=== PATIENT | female | born 1985 | race Caucasian/White ===

== ENCOUNTER → 2018-03-18 10:25 | Outpatient (REF) | payer BC, SELFPAY ==
--- NOTE | 2018-03-18 09:45 | PAPFT_PTH ---
PATIENT: Marilynn Ravi LOC: [facility] U#:[id number] AGE/SX: 40/F ROOM: RE03/18/[address]: DOUG Jade : 1985 BED: DIS: SPEC #: [id number] RECD: 03/18/18 12:54 STATUS: RAMILA BOBO #: [id number] DOROTHY: 03/18/18 09:[address]: Nadia Schwarz DEPT: [facility] Cytology RECD BY: Hina Mendes ENTERED: 03/18/18 12:54 SP TYPE: PAPFT OTHR DR: Amos Childers Tissues: 1 - CX/ENDOCX FOR PAP SMEARS Procedures: PAP THIN PREP/[facility] Screening HPV DNA PROBE Comments: [id number]
[2018-03-19 14:29] LABS: Chlamydia Result Negative; GC Result Negative; Specimen Description CERVIX
== END ==
LOC: LBN 10:25
PROVIDERS: PCP Family Medicine; Visit Provider Nurse Practitioner Family
DX: Z11.3 Encounter for screening for infections with a predominantly sexual mode of transmission (principal); Z12.4 Encounter for screening for malignant neoplasm of cervix; Z11.51 Encounter for screening for human papillomavirus (HPV)
CPT/HCPCS: 87491; 87591; 88142; 87624

== ENCOUNTER 2021-11-12 13:21 | Outpatient (REF) | payer BC, SELFPAY ==
--- NOTE | 2021-11-12 13:00 | PAPFT_PTH ---
PATIENT: Marilynn Ravi LOC: [facility] U#:[id number] AGE/SX: 36/F ROOM: RE11/12/[address]: DOUG Jade : 1985 BED: DIS: 11/12/2021 SPEC #: [id number] RECD: 11/12/21 18:11 STATUS: RAMILA REQ #: [id number] DOROTHY: 11/12/21 13:[address]: Nadia Schwarz DEPT: [facility] Cytology RECD BY: Hina Mendes ENTERED: 11/12/21 18:11 SP TYPE: PAPFT OTHR DR: Amos Childers Tissues: 1 - CX/ENDOCX FOR PAP SMEARS Procedures: PAP THIN PREP/[facility] Screening HPV DNA PROBE Comments: [id number]
== END 2021-11-12 13:22 | disposition home or self-care (01) ==
LOC: LBN 13:21
PROVIDERS: PCP Family Medicine; Visit Provider Nurse Practitioner Family
DX: Z12.4 Encounter for screening for malignant neoplasm of cervix (principal); Z11.51 Encounter for screening for human papillomavirus (HPV); Z97.5 Presence of (intrauterine) contraceptive device
CPT/HCPCS: 88142; 87624

== ENCOUNTER 2023-05-25 15:11 | Outpatient (REF) | payer BC, SELFPAY ==
[2023-05-25 17:17] LABS: HCT 41.2 % (36.0-46.0); HGB 13.6 g/dL (11.2-15.7); MCH 30.3 pg (27.0-33.0); MCV 92 fL (80-95); MPV 11.6 fL (8.0-11.0); Platelet Count 221 10^3/uL (130-400); RBC 4.49 10^6/uL (3.93-5.22); RDW 12.5 % (11.7-14.6); RDW-SD 41.7 fL; WBC 4.88 10^3/uL (4.4-10.8)
[2023-05-25 18:05] LABS: Anion Gap 11.3 mmol/L (3-11); BUN 14 mg/dL (7-18); CO2 22.7 mmol/L (21.0-32.0); CREATININE 0.8 mg/dL (0.55-1.02); Calcium 9.1 mg/dL (8.5-10.1); Calculated LDL 129 mg/dL (<100); Chloride 105 mmol/L (98-107); Cholesterol 197 mg/dL (<200); Estimated GFR 95.46 (mL/min/1.73m2); Glucose 101 mg/dL (74-106); HDL Cholesterol 54 mg/dL (40-60); Potassium 4.2 mmol/L (3.5-5.1); Sodium 139 mmol/L (136-145); Triglyceride 72 mg/dL (<150)
== END 2023-05-25 15:12 | disposition home or self-care (01) ==
LOC: NCHCN 15:11
PROVIDERS: PCP Family Medicine; Visit Provider Physician Assistant
DX: Z00.00 Encounter for general adult medical examination without abnormal findings (principal)
CPT/HCPCS: 80048; 80061; 85027